=== PATIENT | male | born 1935 | race Caucasian/White ===

== ENCOUNTER 2021-01-06 06:21 | Inpatient (IN) | payer MEDICARE, OTHER ==
[~2021-01-06] VITALS: Ht 167.6 cm; Wt 66.2 kg
--- NOTE | 2021-01-06 06:29 | NUR ---
HPI: Pt brought in by [employer] [facility] as Transfer from [facility] for NSTEMI, CHF exacerbation, acute on chronic hypoxic respiratory failure. Pt presented to their ED at around 0300/0330 for acute sudden onset CP and SOB, had EKG changes w/ ST depressions that resolved with NTG/ASA/Morphine/Oxygen. Pt pain free upon arrival. Pt was given 324 ASA, x3 SL NTG, x2, 2mg doses of IV Morphine. Pt has x2 PIV's, 20GRAC, 20GLAC. Pt labs remarkable for Troponin 0.08, Pro-BNP 833, WBC's 17.4 PMH: OK, stents x2 in 1999, aortic valve stenosis, GERD, Type 2 DM, Squamous Cell Carcinoma, CAD, HLD, HTN, current tobacco user (1 pack daily). Fully Vaccinated ([employer]). Assessment: Pt very pleasant, alert and oriented x4, GCS 15, presented on 4L via NC, however satting well on RA. Vitals stable, not tachycardic, not tachypenic, aferbile. Sitting up on gurney, speaking in full sentences. 0000
--- NOTE | 2021-01-06 06:40 | NUR ---
PATIENT 84% ON RA PLACED ON 4LNC NOW SPO2 93%. DENIES CP. WILL CONTINUE TO MONITOR.
--- NOTE | 2021-01-06 06:50 | NUR ---
REPORT GIVEN TO DEB MIGUEL
[2021-01-06] MEDS ORDERED: ATEN25TA PO (06:58)
[2021-01-06] MEDS ORDERED: SIMV20TA19 PO (06:58)
[2021-01-06] MEDS ORDERED: OXYC1TAB18 PO (06:58)
[2021-01-06] MEDS ORDERED: LISI-170 PO (06:58)
[2021-01-06] MEDS ORDERED: ASPI-1026 PO (06:58)
--- NOTE | 2021-01-06 06:59 | NUR ---
Pt connected to all monitors, GEOFFREY.
[2021-01-06] MEDS ORDERED: SODIUM CHLORIDE FLUSH 10ML SYR IVF ONE (07:00)
[2021-01-06] MEDS ORDERED: PLEASE ENTER ALLERGIES MC SCH (07:00)
[2021-01-06] MEDS ORDERED: NITROGLYCERIN SINGLE TAB 0.4 MG SL PRN (07:00)
[2021-01-06] MEDS ORDERED: INSU100V8 SQ ×2 (07:02→11:29)
[2021-01-06] MEDS ORDERED: HUMALIN R SQ (07:02)
--- NOTE | 2021-01-06 07:05 | NUR ---
Inquired with MD Sung about starting Heparin, per , not necessary at this time.
[2021-01-06] MEDS ORDERED: PROMETHAZINE 25 MG/ML, 1ML IM PRN (07:30)
[2021-01-06] MEDS ORDERED: ONDANSETRON 2MG/ML, 2ML IVPush PRN (07:30)
[2021-01-06] MEDS ORDERED: BISACODYL 10 MG SUPP PR PRN (07:30)
[2021-01-06] MEDS ORDERED: OXYcodone IR 5MG TABLET PO PRN (07:30)
[2021-01-06] MEDS ORDERED: DOCUSATE 100 MG CAPSULE PO PRN (07:30)
[2021-01-06] MEDS ORDERED: ACETAMINOPHEN 325 MG TABLET PO PRN (07:30)
[2021-01-06] MEDS ORDERED: NITROGLYCERIN 0.4 MG BOTTLE (25 TABS) SL PRN (07:30)
[2021-01-06] MEDS ORDERED: POLYETHYLENE GLYCOL 17 GM PACKET PO PRN (07:30)
[2021-01-06] MEDS ORDERED: ONDANSETRON ODT 4 MG PO PRN (07:30)
[2021-01-06] MEDS ORDERED: hydrALAzine 20 MG/ML, 1ML IVPush PRN (07:30)
[2021-01-06] MEDS ORDERED: morphine SULFATE 10 MG/ML, 1ML IVPush PRN (07:30)
[2021-01-06] MEDS ORDERED: SODIUM CHLORIDE 0.9% 1,000 ML IV SCH (07:30)
[2021-01-06] MEDS ORDERED: HEPARIN 5,000 UNITS/ML, 1ML SQ SCH (08:00)
[2021-01-06 08:48] VITALS: BP 114/65
[2021-01-06 11:26] LABS: FREE T4 (FREE THYROXINE) 0.86 ng/dL (0.76-1.46)
[2021-01-06] MEDS ORDERED: SIMV20TA PO (11:29)
[2021-01-06] MEDS ORDERED: INSU100V5 SQ-INSULIN (11:29)
[2021-01-06] MEDS ORDERED: HEPARIN 5,000 UNITS/ML, 1ML IV ONE (12:00)
[2021-01-06] MEDS ORDERED: HEPARIN 25,000 UNITS/250ML PMX 250 ML IV PRN (12:30)
[2021-01-06] MEDS ORDERED: ATENOLOL 25 MG TABLET PO SCH (13:00)
[2021-01-06 13:13] VITALS: BP 136/64
[2021-01-06] MEDS: LISINOPRIL 5 MG TABLET PO SCH (13:15)
[2021-01-06] MEDS ORDERED: VERAPAMIL 2.5 MG/ML, 2ML ONE (14:14)
[2021-01-06] MEDS ORDERED: TICAGRELOR 90 MG TABLET ONE (14:14)
[2021-01-06] MEDS ORDERED: FENTANYL PF 100 MCG/2ML ONE (14:14)
[2021-01-06] MEDS ORDERED: MIDAZOLAM 1 MG/ML, 2ML ONE (14:14)
[2021-01-06] MEDS ORDERED: LIDOCAINE-MPF 1%, 5ML ONE (14:15)
[2021-01-06] MEDS ORDERED: BIVALIRUDIN 250 MG ONE (14:15)
[2021-01-06] MEDS ORDERED: HEPARIN 1,000 UNITS/ML, 10ML ONE (14:56)
[2021-01-06] MEDS: INSULIN LISPRO 100 UNITS/ML, PEN SQ-INSULIN SCH ×2 (17:16→22:38)
[2021-01-06 17:38] VITALS: BP 149/68
[2021-01-06] MEDS: CARVEDILOL 6.25 MG TABLET PO SCH (17:39)
[2021-01-06 20:18] VITALS: BP 130/67
[2021-01-06] MEDS: ATORVASTATIN 80 MG TABLET PO SCH (20:24)
[2021-01-06] MEDS ORDERED: SIMVASTATIN 20 MG TABLET PO SCH (21:00)
[2021-01-07 00:16] VITALS: BP 134/64
[2021-01-07 04:59] LABS: BASOPHILS % (AUTO) 1 % (0-1); EOSINOPHILS % (AUTO) 1 % (1-7); LYMPHOCYTES % (AUTO) 13 % (22-44); MEAN CORPUSCULAR HEMOGLOBIN 29.4 pg (27.5-34.5); MEAN CORPUSCULAR HGB CONC 33.3 g/dL (33.2-36.2); MEAN PLATELET VOLUME 7.3 fL (7.4-10.4); MONOCYTES % (AUTO) 10 % (2-9); NEUTROPHILS % (AUTO) 74 % (42-75); PLATELET COUNT 198 x10^3/uL (130-400); RED BLOOD COUNT 4.27 x10^6/uL (4.38-5.82); RED CELL DISTRIBUTION WIDTH 14.9 % (9.4-14.8)
[2021-01-07 05:09] LABS: ALBUMIN 2.2 g/dL (3.4-5.0); ANION GAP 6 mmol/L (5-15); CALCIUM 8.7 mg/dL (8.5-10.1); CHLORIDE 114 mmol/L (98-107)
[2021-01-07 05:12] LABS: ALANINE AMINOTRANSFERASE 27 U/L (12-78); ALKALINE PHOSPHATASE 45 U/L (45-117); BILIRUBIN,TOTAL 0.6 mg/dL (0.2-1.0); CHOL/HDL RATIO 3.2; CHOLESTEROL, TOTAL 118 mg/dL (140-239); HDL CHOL % 31 % (26-37); HDL CHOLESTEROL (DIRECT) 37 mg/dL (40-60); LDL CHOLESTEROL,CALCULATED 57 mg/dL (54-169); LDL/HDL RATIO 1.5 (0.5-3.0); TOTAL PROTEIN 6.5 g/dL (6.4-8.2); TRIGLYCERIDES 120 mg/dL (50-200); VLDL CHOLESTEROL 24 mg/dL (0-25)
[2021-01-07] MEDS ORDERED: ASPIRIN 325 MG TABLET EC PO SCH (06:00)
[2021-01-07 06:13] VITALS: BP 158/61
[2021-01-07] MEDS: ASPIRIN 81 MG TABLET EC PO SCH (06:15)
[2021-01-07] MEDS: CARVEDILOL 6.25 MG TABLET PO SCH ×2 (06:15→17:12)
[2021-01-07] MEDS: HEPARIN 5,000 UNITS/ML, 1ML IV PRN ×2 (06:27→19:42)
[2021-01-07] MEDS: INSULIN LISPRO 100 UNITS/ML, PEN SQ-INSULIN SCH ×4 (07:00→20:24)
[2021-01-07 07:21] VITALS: BP 135/61
[2021-01-07] MEDS: LISINOPRIL 5 MG TABLET PO SCH (09:08)
[2021-01-07 12:42] VITALS: BP 164/74
[2021-01-07 17:12] VITALS: BP 169/77
[2021-01-07] MEDS: AMLODIPINE 2.5 MG TABLET PO SCH (20:11)
[2021-01-07] MEDS: ATORVASTATIN 80 MG TABLET PO SCH (20:11)
[2021-01-07 20:33] VITALS: BP 132/58
[2021-01-08 01:48] VITALS: BP 147/70
[2021-01-08 01:57] LABS: BASOPHILS % (AUTO) 1 % (0-1); EOSINOPHILS % (AUTO) 1 % (1-7); LYMPHOCYTES % (AUTO) 15 % (22-44); MEAN CORPUSCULAR HEMOGLOBIN 29.6 pg (27.5-34.5); MEAN CORPUSCULAR HGB CONC 33.3 g/dL (33.2-36.2); MEAN PLATELET VOLUME 7.7 fL (7.4-10.4); MONOCYTES % (AUTO) 10 % (2-9); NEUTROPHILS % (AUTO) 73 % (42-75); PLATELET COUNT 210 x10^3/uL (130-400); RED BLOOD COUNT 4.17 x10^6/uL (4.38-5.82); RED CELL DISTRIBUTION WIDTH 15.4 % (9.4-14.8)
[2021-01-08 02:08] LABS: ALANINE AMINOTRANSFERASE 22 U/L (12-78); ALBUMIN 2.1 g/dL (3.4-5.0); ANION GAP 6 mmol/L (5-15); CALCIUM 8.9 mg/dL (8.5-10.1); CHLORIDE 112 mmol/L (98-107); CREATININE 0.86 mg/dL (0.7-1.3)
[2021-01-08 02:11] LABS: ALKALINE PHOSPHATASE 45 U/L (45-117); BILIRUBIN,TOTAL 0.6 mg/dL (0.2-1.0); TOTAL PROTEIN 6.5 g/dL (6.4-8.2)
[2021-01-08] MEDS: CARVEDILOL 6.25 MG TABLET PO SCH ×2 (06:04→17:28)
[2021-01-08] MEDS: ASPIRIN 81 MG TABLET EC PO SCH (06:05)
[2021-01-08 06:42] VITALS: BP 126/71
[2021-01-08] MEDS: INSULIN LISPRO 100 UNITS/ML, PEN SQ-INSULIN SCH ×3 (07:00→16:00)
[2021-01-08] MEDS ORDERED: CLOPIDOGREL 75 MG TABLET PO SCH (09:00)
[2021-01-08 10:07] VITALS: BP 156/56
[2021-01-08] MEDS: LISINOPRIL 5 MG TABLET PO SCH (10:08)
[2021-01-08] MEDS: AMLODIPINE 2.5 MG TABLET PO SCH (10:08)
[2021-01-08] MEDS ORDERED: CARV6.2512 PO (11:59)
[2021-01-08] MEDS ORDERED: ASPI81TA45 PO (11:59)
[2021-01-08] MEDS ORDERED: CLOP75TA PO (11:59)
[2021-01-08] MEDS ORDERED: AMLO2.5T5 PO (11:59)
[2021-01-08] MEDS ORDERED: ATOR-2 PO (11:59)
[2021-01-08 12:07] VITALS: BP 146/67
[2021-01-08] MEDS ORDERED: FUROSEMIDE 20 MG/2 ML IV ONE (12:30)
[2021-01-08 17:26] VITALS: BP 177/67
== END 2021-01-08 18:16 | disposition home or self-care (01) | DRG 280 ==
LOC: ED 06:58 → EDIP 07:07 → 5SO 08:11
PROVIDERS: ADMIT Internal Medicine; ATTEND Internal Medicine
PROC: 4A023N7 Measurement of Cardiac Sampling and Pressure, Left Heart, Percutaneous Approach (ICD-10-PCS; principal; 2021-01-06)
PROC: B2111ZZ Fluoroscopy of Multiple Coronary Arteries using Low Osmolar Contrast (ICD-10-PCS; 2021-01-06)
PROC: 4A033BC Measurement of Arterial Pressure, Coronary, Percutaneous Approach (ICD-10-PCS; 2021-01-06)
DX: I21.4 Non-ST elevation (NSTEMI) myocardial infarction (principal); I50.23 Acute on chronic systolic (congestive) heart failure; T82.855A Stenosis of coronary artery stent, initial encounter; I42.9 Cardiomyopathy, unspecified; I25.110 Atherosclerotic heart disease of native coronary artery with unstable angina pectoris; D72.829 Elevated white blood cell count, unspecified; E11.9 Type 2 diabetes mellitus without complications; E78.5 Hyperlipidemia, unspecified; I11.0 Hypertensive heart disease with heart failure; F17.210 Nicotine dependence, cigarettes, uncomplicated; I35.2 Nonrheumatic aortic (valve) stenosis with insufficiency; K21.9 Gastro-esophageal reflux disease without esophagitis; G89.29 Other chronic pain; Y83.1 Surgical operation with implant of artificial internal device as the cause of abnormal reaction of the patient, or of later complication, without mention of misadventure at the time of the procedure; Y92.89 Other specified places as the place of occurrence of the external cause; Z79.02 Long term (current) use of antithrombotics/antiplatelets; Z71.6 Tobacco abuse counseling
CPT/HCPCS: 36415; 71045; 80053; 80061; 82962; 83036; 83735; 84100; 84439; 84443; 84484; 85025; 85520; 93005; 93306; 93458; 93571; 96374; 99156; 99157; C1769; C1894; G0378; J0583; J1644; J2250; J3010; J1815; J1940; J7030; Q9967